=== PATIENT | male | born 1955 | race Two or more races ===

== ENCOUNTER 2017-03-26 07:32 | Inpatient (IN) | payer BC ==
[2017-03-04 14:23] VITALS: BMI 24.4
--- NOTE | 2017-03-25 09:13 | HP ---
[facility] - Chief Complaint Chief Complaint: left hip pain - Past Medical History Allergies/Adverse Reactions: Allergies Allergy/AdvReac Type Severity Reaction Status Date / Time No Known Allergies Allergy Verified 03/04/17 14:17 - Current Medications Current Medications: Home Medications Medication Instructions Recorded NK [No Known Home Medication] 12/22/15 [facility] Physical Exam - Physical Examination General Appearance: Well Nourished, Well Developed, Alert & Oriented x3 ENT: Clear Lung: Normal air movement Heart: Regular rate & rhythm Extremities: Other (left hip- + ttp ,decr rom, nvi xrays show severe hip djd) Neurological: Intact, Alert, Oriented [facility] Impression/Plan - Impression/Plan Impression: left hip djd Operative Procedure: left jae thr Date to be Performed: 03/26/17
[2017-03-26] MEDS ORDERED: TRANEXAMIC ACID 1000 MG/10 ML VIAL IVPUSH ONE (07:48)
[2017-03-26] MEDS ORDERED: oxyCODONE HCL 10 MG SUSTAINED ACTING TABLET PO ONE (07:48)
[2017-03-26] MEDS ORDERED: CELECOXIB 200 MG CAPSULE PO ONE (07:48)
[2017-03-26] MEDS ORDERED: CEFAZOLIN 2 GM in DEXTROSE 5%-WATER - 50 ML IVPB ONE (07:48)
[2017-03-26] MEDS ORDERED: GABAPENTIN 300 MG CAPSULE (FP) PO ONE (07:48)
[2017-03-26] MEDS ORDERED: ceFAZolin SODIUM 1 GM VIAL ONE ×2 (08:33→09:35)
[2017-03-26] MEDS ORDERED: VANCOMYCIN 1,000 MG VIAL (RESTRICTED TO ID ONLY) ONE (08:33)
[2017-03-26] MEDS ORDERED: MIDAZOLAM HCL 2 MG/2 ML SINGLE DOSE VIAL ONE ×2 (08:47→09:06)
[2017-03-26] MEDS ORDERED: ROPIVACAINE HCL 0.5% 30ML VIAL ONE (08:47)
[2017-03-26] MEDS ORDERED: DEXAMETHASONE SOD PHOSPHATE/PF 10 MG/ML SDV ONE (08:47)
[2017-03-26] MEDS ORDERED: EPINEPHrine/PF 1 MG/1 ML (1:1,000) AMPULE ONE (08:47)
[2017-03-26] MEDS ORDERED: BUPIVACAINE HCL/PF 0.5% (5MG/ML) 10 ML VIAL ONE (09:04)
[2017-03-26] MEDS ORDERED: ePHEDrine SULFATE 50 MG/1 ML AMPULE ONE (09:05)
[2017-03-26] MEDS ORDERED: TRANEXAMIC ACID 1000 MG/10 ML VIAL ONE ×2 (09:36→11:11)
[2017-03-26] MEDS ORDERED: PROPOFOL 20 ML ONE (10:46)
[2017-03-26] MEDS ORDERED: VANCOMYCIN 1,000 MG VIAL (RESTRICTED TO ID ONLY) IVPB ONE (11:07)
[2017-03-26] MEDS ORDERED: MAG HYDROX/AL HYDROX/SIMETH 30 ML UNIT-DOSE CUP PO PRN (11:37)
[2017-03-26] MEDS ORDERED: MAGNESIUM HYDROX 2400MG/30ML ORAL SUSPENSION 30 ML CUP PO PRN (11:37)
--- NOTE | 2017-03-26 11:40 | OP ---
Operative Note - Note: Operative Date: 03/26/17 (thuy) Pre-Operative Diagnosis: left hip djd Operation: left jae thr Post-Operative Diagnosis: Same as Pre-op Surgeon: Richard Harvey High Lift Operator: Jere Brar Anesthesiologist/DIE INSPECTOR: Ishaan Swain Anesthesia: Spinal, Local Specimens Removed: femoral head Estimated Blood Loss (mls): 200 Operative Report Dictated: Yes
[2017-03-26] MEDS ORDERED: LACTATED RINGERS SOLUTION 1,000 ML IV SCH (11:45)
[2017-03-26] MEDS ORDERED: oxyCODONE HCL 5 MG TABLET PO PRN (12:35)
[2017-03-26] MEDS ORDERED: ONDANSETRON 4 MG/2 ML VIAL IVPB PRN (12:54)
[2017-03-26] MEDS ORDERED: PROMETHAZINE HCL 25 MG/1 ML VIAL IVPUSH PRN (12:56)
[2017-03-26] MEDS: CEFAZOLIN 2 GM/D5W 50 ML IVPB SCH (17:56)
[2017-03-26] MEDS: oxyCODONE HCL 10 MG SUSTAINED ACTING TABLET PO SCH (21:25)
[2017-03-26] MEDS: GABAPENTIN 300 MG CAPSULE (FP) PO SCH (21:25)
[2017-03-26] MEDS: oxyCODONE HCL 5 MG TABLET PO PRN (21:26)
[2017-03-26] MEDS: SENNOSIDES/DOCUSATE COMBO (SENNA PLUS) TABLET (UD) PO SCH (21:26)
[2017-03-27] MEDS: CEFAZOLIN 2 GM/D5W 50 ML IVPB SCH (01:02)
[2017-03-27 06:19] VITALS: BP 116/71; PULSE 90; TEMP 98.5
[2017-03-27] MEDS: oxyCODONE HCL 5 MG TABLET PO PRN (06:58)
[2017-03-27 07:58] LABS: MCH 29.9 pg (25.7-33.7); MCHC 33.7 g/dl (32.0-35.9); MEAN CELL VOLUME 88.6 fl (80-96); MEAN PLT VOLUME 8.8 fl (7.5-11.1); PLATELET COUNT 311 K/MM3 (134-434); RDW 13.1 % (11.9-15.9); WHITE BLOOD COUNT 12.3 K/mm3 (4.0-10.8)
[2017-03-27] MEDS ORDERED: ASPIRIN 325 MG TABLET PO SCH (08:00)
--- NOTE | 2017-03-27 09:47 | PN ---
Progress Note (short form) - Note Progress Note: Ortho Pt seen and examined s/p left jae thr pod #1 Selected Entries 03/27/17 05:00 Temperature 98.5 F Pulse Rate 90 Respiratory 19 Rate Blood Pressure 116/71 Laboratory Tests 03/27/17 07:30 WBC 12.3 H Hgb 12.8 Hct 37.8 Plt Count 311 dressing c/d/i, calf soft, nt nvi a/p PT hip precautions dvt ppx pain control d/c home today f/u in 1 week
--- NOTE | 2017-03-27 09:48 | DS ---
Physical Examination Vital Signs: Vital Signs Temperature 98.5 F 03/27/17 05:00 Pulse Rate 90 03/27/17 05:00 Respiratory Rate 19 03/27/17 05:00 Blood Pressure 116/71 03/27/17 05:00 O2 Sat by Pulse Oximetry (%) 99 03/27/17 05:00 Labs: CBC, BMP 03/27/17 07:30 Discharge Summary Reason For Visit: OSTEOARTHRITIS Procedures: Principal: s/p left jae thr Hospital Course: admitted for elective left jae thr, uneventful post-op, stable for d/c Condition: Good - Instructions Diet, Activity, Other Instructions: Post-op Instructions-Total Hip Replacement Call the office for a follow-up appointment in 1 week - [phone] Aspirin 325mg daily for 6 weeks. Pain medication was sent into your pharmacy. Apply Graduated Compression Stockings (TEDs) to both lower extremities- remove daily for hygiene ONLY Apply Sequential Compression Device (SCDs) to both Lower extremities remove for PT and hygiene ONLY Apply cold packs to affected area for 15 minutes every 2 hours. Physical Therapist will come to your home for the first 5 days. You will be set up with outpatient PT at your first post-operative visit. Patient may ambulate as tolerated-encourage self care (at least every 2-3 hours while awake) with walker or cane Maintain Aquacel (waterproof) dressing to operative wound (will be removed by surgeon at first office visit) Shower with Aquacel dressing in place-if Aquacel integrity compromised, remove and apply dry sterile dressing and notify Orthopedist. DO NOT SHOWER unless Orthopedists approves without Aquacel dressing CONTACT THE OFFICE FOR ANY CHANGE IN YOUR CONDITION (for example-fever greater than 102 degrees,excessive bleeding from operative site, purulent drainage, severe swelling or pain) GO TO THE EMERGENCY ROOM IF THERE IS A MEDICAL EMERGENCY Hip Precautions: * Keep a rolled towel under affected heel while in bed or chair (to keep knee in extension) * Dependent upon approach: * Posterior - do not cross legs; do not sit on low chairs or toilets. * If you have any questions, please do not hesitate to call the office - [phone]. Referrals: Richard Harvey MD [Staff Physician] - Disposition: HOME - Home Medications Comprehensive Discharge Medication List: Ambulatory Orders Aspirin [ASA -] 325 mg PO DAILY@0800 tablet 03/26/17 Oxycodone HCl/Acetaminophen [Percocet 5-325 mg Tablet -] 1 - 2 tab PO Q6H #50 tab MDD 8 03/26/17
[2017-03-27] MEDS ORDERED: PANTOPRAZOLE 40 MG TABLET (FP) PO SCH (10:00)
[2017-03-27] MEDS ORDERED: MULTIVITAMINS (DAILY MVI) TABLET (FP) PO SCH (10:00)
[2017-03-27] MEDS: SENNOSIDES/DOCUSATE COMBO (SENNA PLUS) TABLET (UD) PO SCH (10:38)
[2017-03-27] MEDS: GABAPENTIN 300 MG CAPSULE (FP) PO SCH (10:38)
[2017-03-27] MEDS: oxyCODONE HCL 10 MG SUSTAINED ACTING TABLET PO SCH (10:38)
--- NOTE | 2017-03-27 11:43 | SPEC ---
DATE OF OPERATION: 03/26/2017 PREOPERATIVE DIAGNOSIS: Degenerative joint disease, left hip POSTOPERATIVE DIAGNOSIS: Degenerative joint disease, left hip PROCEDURE: Left total hip replacement with robotic arm navigation assistance (Makoplasty) SURGEON: Dr. Fritz Harvey HYDRO EXCAVATION OPERATOR: BLACK Hernandez ANESTHESIA: Spinal and regional. CLOSURE: A 56 Tritanium Press-Fit acetabulum with a No. 8 Accolade 2 Press-Fit femoral stem, and a 36-mm plus 5 ceramic head, No. 1 Vicryl for capsule and fascia, 0 and 2-0 subcutaneous, 3-0 Monocryl subcuticular for skin with skin glue. ESTIMATED BLOOD LOSS: Less than 100 mL. COMPLICATIONS: None. CONDITION: To recovery room in stable condition. DESCRIPTION OF OPERATIVE PROCEDURE: The patient was taken to the operating room. Spinal anesthesia as well as sciatic block was administered by the anesthesiologist. The IV Kefzol and TXA were administered prophylactically prior to the case. The patient was placed in the lateral decubitus position with all prominences well-padded. An EKG pad was secured to the inferior pole of the patella for limb length calculations intraoperatively. The left hip area was prepped and draped in the usual sterile fashion. A 12.0-15.0 cm curved longitudinal incision over the posterolateral aspect of the greater trochanter was made. Hemostasis was achieved with Bovie cautery. Sharp dissection was carried down to the level of the fascia. The fascia was opened the entire length of the incision, spreading the gluteus tosha fibers in the direction of their origin. A Charnley retractor was placed in this layer, and care was taken to be far away from the sciatic nerve. The short external rotators were detached off the insertion of the greater trochanter and peeled off the capsule. A posterior capsulectomy was then performed. A checkpoint was malleted into the greater trochanter. Three small stab incisions were done on the iliac crest. Through these stab incisions, threaded guide pins were drilled into the iliac crest. These pins were fastened to the Navigation array. The check point on the greater trochanter, and the EKG pad on the inferior pole of the patella were used to measure preoperative limb length and offset. The hip was then dislocated. The hip was osteotomized at the appropriate level as directed by the preoperative template. Anterior and posterior retractors were placed around the acetabulum. Circumferential labrum was excised. A checkpoint was malleted into the acetabulum superiorly. The acetabulum was then registered with the Navigation device with multiple sites within the acetabulum and around the rim of the acetabulum. I t was then confirmed popping the blue bubbles, confirming ideal position and confirmation of adequate registration with the Navigation device. Using a 48 reamer, which was decided preoperatively on the preoperative template, the robotic arm was brought into the field and was used to ream the acetabulum down to the appropriate depth with the appropriate orientation and inversion applied. After reaming, a good hemispherical bleeding surface was encountered in the acetabulum. A TERRI shell of the appropriate size was then malleted into place achieving excellent fit. Confirmation of the appropriate orientation and inversion was confirmed using the probe, and assuring that the acetabular cup was placed in the ideal position as templated preoperatively. A real liner was then clipped into place with a 10 degree lip in the posterior-superior quadrant. Anterior and posterior osteophytes were removed using osteotome. Next, our attention was directed to the femur. The proximal femur was opened with a box chisel, rat-tail, anchovy and serial reamers. This was done until the appropriate reamer achieved good fit and fill of the proximal femur. A trial reduction with the appropriate neck and head, as again measured from our preoperative template, was performed. Limb lengths were confirmed both visually and using the Navigation device, again measuring the inferior pole of the patella and the checkpoint of the greater trochanter. This confirmed ideal position of the femoral component, lengths and offset. The trial components were removed. The real component was malleted into place. The head was cold-welded to the Charnley and the hip was reduced. Again, the hip was found to have equal limb lengths as described previously. The hip was also taken through a range of motion and found to be stable in external rotation and extension, was stable in marked flexion, stable in adduction and internal rotation, and had a positive hang test and negative telescoping. The hip was irrigated with copious amounts of irrigation. Hemostasis was achieved. Vancomycin powder was sprinkled into the joint. A second dose of TXA was administered. The fascia was closed with No. 1 Vicryl interrupted suture, 0 and 2-0 for subcutaneous, and 3-0 Monocryl subcuticular for skin with skin glue. This was followed by an Aquacel dressing. The patient was flipped into the supine position. Bilateral SCDs and an abduction pillow were applied. X-rays showed good position of the components. The patient was awakened from anesthesia and transferred to the recovery room in stable condition. FRITZ HARVEY M.D. [id number]
--- NOTE | 2017-04-02 16:11 | PATH ---
Surgical Pathology Report Patient Name: HORACE GARCIAS Med. Rec. #: [id number] /Age/Gender: 1955 (Age: 61) / M Account: [id number] Location: [facility]G Taken: 03/26/2017 Received: 03/27/2017 Reported: 04/02/2017 Physicians: Richard Harvey M.D. Specimen(s) Received LEFT HIP FEMORAL HEAD Clinical History Left hip osteoarthritis Final Diagnosis FEMORAL HEAD, LEFT HIP, TOTAL HIP REPLACEMENT: DEGENERATIVE JOINT DISEASE. Electronically Signed Tala Crawford M.D. Gross Description Received in formalin, labeled "left hip femoral head," is a 5.0 x 4.5 x 4.5 cm. femoral head with a 1.3 cm in length attached portion of femoral neck. The margin of resection is smooth. No areas of eburnation are identified. The articular surface is soriano-yellow and focally nodular and granular. The underlying trabecular bone is yellow and hard. Rpg Programmer Analyst sections are submitted in one cassette, following decalcification. 03/27/2017 [facility]03/27/2017
== END 2017-03-27 17:05 | disposition home or self-care (01) | DRG 470 ==
LOC: FM/S 07:32
PROVIDERS: ADMIT Orthopaedic Surgery; ATTEND Orthopaedic Surgery
PROC: 8E0Y0CZ Robotic Assisted Procedure of Lower Extremity, Open Approach (ICD-10-PCS; 2017-03-26)
PROC: 0SRB0JZ Replacement of Left Hip Joint with Synthetic Substitute, Open Approach (ICD-10-PCS; principal; 2017-03-26 09:57)
DX: M16.12 Unilateral primary osteoarthritis, left hip (principal)
CPT/HCPCS: 36415; 73502-TC-LT; 85027; 88305-TC; 88311-TC; 94010; 94760; 97116-GP; 97162-PG

== ENCOUNTER 2020-07-17 13:05 | Emergency (ER) | payer BC ==
[2020-07-17 13:26] VITALS: BP 144/77; PULSE 59; TEMP 97.9; BMI 23.7
[2020-07-17] MEDS ORDERED: KETOROLAC TROMETHAMINE 30 MG/1 ML VIAL IVPUSH ONE (14:18)
[2020-07-17] MEDS ORDERED: SODIUM CHLORIDE 1,000 ML IV STA (14:18)
[2020-07-17 14:23] LABS: EPITHELIAL CELLS FEW /hpf
[2020-07-17] MEDS ORDERED: KETOROLAC TROMETHAMINE 30 MG/1 ML VIAL ONE (14:23)
--- NOTE | 2020-07-17 14:24 | PDOC ---
History of Present Illness - General Chief Complaint: Back Pain Stated Complaint: RIGHT SIDED BACK PAIN Time Seen by Provider: 07/17/20 13:11 - History of Present Illness Initial Comments: 07/17/20 14:22 65 M with no PMH presents to ED with R flank pain x 5 days. Pt states that he has had intermittent pain radiating from his R flank towards his groin. Denies any abdominal pain. Denies F/C. Denies dysuria. Pt states that he went to his PMD who did UA and found blood in his urine. He was started on cipro and flomax, but today he had an episode of severe pain that brought him to the ED. Pt states that just prior to arrival to ED, his pain subsided. He has no complaints currently. Pt notes that he has been taking tylenol at home with no relief. Past History - Medical History Allergies/Adverse Reactions: Allergies Allergy/AdvReac Type Severity Reaction Status Date / Time No Known Allergies Allergy Verified 07/17/20 13:16 Home Medications: Ambulatory Orders Ciprofloxacin HCl [Cipro] mg PO Q12H 07/17/20 Tamsulosin HCl [Flomax] 0.4 mg PO DAILY 07/17/20 Anemia: No Asthma: No Cancer: No Cardiac Disorders: No CVA: No COPD: No CHF: No Dementia: No Diabetes: No GI Disorders: No Disorders: No HTN: No Hypercholesterolemia: No Kidney Stones: Yes Liver Disease: No Seizures: No Thyroid Disease: No - Surgical History Abdominal Surgery: No Appendectomy: No Cardiac Surgery: No Cholecystectomy: No Lung Surgery: No Neurologic Surgery: No Orthopedic Surgery: No - Psycho-Social/Smoking History Smoking History: Former smoker Have you smoked in the past 12 months: No If you are a former smoker, when did you quit?: OVER 10 YEARS Information on smoking cessation initiated: No - Substance Abuse Hx (Audit-C & DAST Scrn) How often the patient has a drink containing alcohol: Never Score: In Men: 4 or > Positive; In Women: 3 or > Positive: 0 Screen Result (Pos requires Nsg. Audit-10AR): Negative In the last yr the pt used illegal drug/Rx for NonMed reason: No Score: Yes response is considered Positive: 0 Screen Result (Positive result requires Nsg. DAST-10): Negative Review of Systems - Review of Systems Comments:: 07/17/20 14:23 "GENERAL/CONSTITUTIONAL: No fever or chills. No weakness. HEAD, EYES, EARS, NOSE AND THROAT: No change in vision. No ear pain or discharge. No sore throat. CARDIOVASCULAR: No chest pain, no shortness of breath, no loss of consciousness RESPIRATORY: No cough, wheezing, or hemoptysis. GASTROINTESTINAL: No nausea, vomiting, diarrhea or constipation. GENITOURINARY: + R flank pain, No dysuria, frequency, or change in urination. MUSCULOSKELETAL: No joint or muscle swelling or pain. No neck or back pain. SKIN: No rash NEUROLOGIC: No vertigo, no change in strength/sensation. ENDOCRINE: No increased thirst. No abnormal weight change. HEMATOLOGIC/LYMPHATIC: No anemia, easy bleeding, or history of blood clots. ALLERGIC/IMMUNOLOGIC: No hives or skin allergy. *Physical Exam - Vital Signs Last Vital Signs Temp Pulse Resp BP Pulse Ox 97.9 F 59 L 18 144/77 100 07/17/20 13:05 07/17/20 13:05 07/17/20 13:05 07/17/20 13:05 07/17/20 13:05 - Physical Exam 07/17/20 14:24 "GENERAL: Awake, alert, and fully oriented, in no acute distress. HEAD: No signs of trauma EYES: PERRLA, EOMI, sclera anicteric, conjunctiva clear ENT: Auricles normal inspection, hearing grossly normal, nares patent, oropharynx clear without exudates. Moist mucosa NECK: Nontender, no stepoffs, Normal ROM, supple, no lymphadenopathy, JVD, or masses LUNGS: Breath sounds equal, clear to auscultation bilaterally. No wheezes, and no crackles HEART: Regular rate and rhythm, normal S1 and S2, no murmurs, rubs or gallops ABDOMEN: Soft, nontender, normoactive bowel sounds. No guarding, no rebound. No masses EXTREMITIES: Normal range of motion, no edema. No clubbing or cyanosis. No cords, erythema, or tenderness NEUROLOGICAL: Cranial nerves II through XII intact. 5/5 strength and sensation in all extremities, Normal speech, normal gait, normal cerebellar function SKIN: Warm, Dry, normal turgor, no rashes or lesions noted. ED Treatment Course - LABORATORY CBC & Chemistry Diagram: 07/17/20 15:22 07/17/20 14:18 - ADDITIONAL ORDERS Additional order review: Laboratory Results 07/17/20 14:02 Urine Color Yellow Urine Appearance Clear Urine pH 5.5 Urine Protein Negative Urine Glucose (UA) Negative Urine Ketones Trace Urine Blood 3+ H Urine Nitrite Negative Urine Bilirubin Negative Urine Urobilinogen 0.2 Ur Leukocyte Esterase Negative - RADIOLOGY Radiology Studies Ordered: Category Date Time Status ABDOMEN & PELVIS CT W/O CONTR [CT] Stat CT Scan 07/17/20 14:17 Ordered Medical Decision Making - Medical Decision Making 07/17/20 14:24 65 M with colicky R flank pain. Suspect renal colic. - Labs, UA - CTAP - IVF, toradol 07/17/20 16:00 CT with 4mm R ureteral stone Labs unremarkable Pt reassessed - pain well controlled Will DC with urology f/u Pt is well appearing, with normal vitals. Clinically stable for DC at this time. I discussed the physical exam findings, ancillary test results and final diagnoses with the patient. I answered all of the patient's questions. The patient was satisfied with the care received and felt comfortable with the discharge plan and treatment plan. The patient agrees to follow up with the primary care physician within 24-72 hours. Discharge - Discharge Information Problems reviewed: Yes Clinical Impression/Diagnosis: Kidney stone, Flank pain Disposition: HOME - Follow up/Referral Referrals: Lennox Santos MD [Primary Care Provider] - Per Sanchez MD [Staff Physician] - - Patient Discharge Instructions Patient Printed Discharge Instructions: DI for Kidney Stones Additional Instructions: Your CT scan shows a 4mm kidney stone. Drink plenty of fluid and take motrin as needed for pain. If you experience severe pain, vomiting, fevers, or any other concerning symptoms, return to the ER immediately. Otherwise, follow up with a urologist within 1 week for further management. Call the number provided if you do not currently have a urologist. - Post Discharge Activity
[2020-07-17 15:44] LABS: BASO % 0.5 % (0-2.0); EOS % 0.4 % (0-4.5); HEMATOCRIT 39.8 % (35.4-49); HEMOGLOBIN 13.4 GM/dl (11.7-16.9); LYMPH % 12.1 % (8-40); MCHC 33.8 g/dl (32.0-35.9); MEAN CELL VOLUME 88.7 fl (80-96); MONO % 12.4 % (3.8-10.2); NEUT % 74.6 % (42.8-82.8); PLATELET COUNT 330 K/MM3 (134-434); RBC 4.49 M/mm3 (4.00-5.60); RDW 13.4 % (11.9-15.9); WHITE BLOOD COUNT 9.4 K/mm3 (4.0-10.8)
[2020-07-17 15:50] LABS: ALBUMIN 3.6 g/dl (3.4-5.0); BILIRUBIN,TOTAL 0.8 mg/dl (0.2-1); CALCIUM 9.1 mg/dl (8.5-10); CREATININE 1.4 mg/dl (0.55-1.3); TOT PROT 6.6 g/dl (6.4-8.2)
== END 2020-07-17 16:20 | disposition home or self-care (01) ==
LOC: FER 13:05
PROC: 3E0333Z Introduction of Anti-inflammatory into Peripheral Vein, Percutaneous Approach (ICD-10-PCS; principal; 2020-07-17)
PROC: 3E0337Z Introduction of Electrolytic and Water Balance Substance into Peripheral Vein, Percutaneous Approach (ICD-10-PCS; 2020-07-17)
DX: N20.0 Calculus of kidney (principal); R10.9 Unspecified abdominal pain
CPT/HCPCS: 36415; 74176-TC; 80053; 81003; 81015; 85025; 99284-25

== ENCOUNTER 2021-11-23 20:14 | Emergency (ER) | payer BC, OTHER ==
[2021-11-23 20:20] VITALS: BP 133/66; PULSE 73; TEMP 98.4; BMI 23.7
== END 2021-11-23 21:07 | disposition home or self-care (01) ==
LOC: FER 20:14
DX: S62.617A Displaced fracture of proximal phalanx of left little finger, initial encounter for closed fracture (principal); W23.1XXA Caught, crushed, jammed, or pinched between stationary objects, initial encounter; Y93.67 Activity, basketball
CPT/HCPCS: 73140-TC-RT-FY; 99283-25

== ENCOUNTER 2022-10-24 08:24 | Day surgery (SDC) | payer BC ==
[2022-10-22 09:49] VITALS: BMI 23.7
[2022-10-24] MEDS ORDERED: BSS (NA/CA/MG/K) BALANCED SALT SOLUTION OPHTH SOLN 15 ML BOTTLE ONE (08:31)
[2022-10-24] MEDS ORDERED: CARBACHOL 0.01% INTRA-OCULAR 1.5 ML VIAL ONE (08:31)
[2022-10-24] MEDS ORDERED: TETRACAINE 0.5% OPHTH SOLN 2 ML BOTTLE ONE (08:31)
[2022-10-24] MEDS ORDERED: NEO/POLYMYX B SULF/DEXAMETH OPHTHALMIC 5ML BOTTLE ONE (08:31)
[2022-10-24] MEDS ORDERED: LIDOCAINE 1% P/F 10 MG/ML VIAL ONE (08:31)
[2022-10-24] MEDS: CYCLOPENTOLATE 2% OPHTH SOLN 2 ML BOTTLE ONE ×3 (08:55→09:05)
[2022-10-24] MEDS: TROPICAMIDE 1% OPHTH SOLN 15 ML BOTTLE ONE ×3 (08:55→09:05)
[2022-10-24] MEDS: CIPROFLOXACIN 0.3% EYE DROPS 5 ML BOTTLE ONE ×3 (08:55→09:05)
[2022-10-24] MEDS: PHENYLEPHRINE 2.5% OPHTH SOLN 15 ML BOTTLE ONE ×3 (08:55→09:05)
[2022-10-24] MEDS ORDERED: MIDAZOLAM HCL 2 MG/2 ML SINGLE DOSE VIAL ONE ×2 (09:46→10:09)
[2022-10-24 10:49] VITALS: TEMP 98
[2022-10-24 11:14] VITALS: BP 110/68; PULSE 74; RESP 19
== END 2022-10-24 11:07 | disposition home or self-care (01) ==
LOC: FASU 08:24
PROVIDERS: ATTEND Ophthalmology
PROC: 08RK3JZ Replacement of Left Lens with Synthetic Substitute, Percutaneous Approach (ICD-10-PCS; principal; 2022-10-24 10:13)
DX: H26.8 Other specified cataract (principal)
CPT/HCPCS: 66984; V2632

== ENCOUNTER 2023-06-26 08:26 | Day surgery (SDC) | payer BC ==
[2023-06-14 15:52] VITALS: BMI 23.7
[2023-06-26] MEDS: CIPROFLOXACIN 0.3% EYE DROPS 5 ML BOTTLE ONE ×3 (08:40→08:50)
[2023-06-26] MEDS: PHENYLEPHRINE 2.5% OPTHALMIC DROP 2ML BOTTLE ONE ×3 (08:40→08:50)
[2023-06-26] MEDS: TROPICAMIDE 1% OPHTH SOLN 15 ML BOTTLE ONE ×3 (08:40→08:50)
[2023-06-26] MEDS: CYCLOPENTOLATE 2% OPHTH SOLN 2 ML BOTTLE ONE ×3 (08:40→08:50)
[2023-06-26 08:48] VITALS: RESP 19
[2023-06-26] MEDS ORDERED: BSS (NA/CA/MG/K) BALANCED SALT SOLUTION OPHTH SOLN 15 ML BOTTLE ONE (09:46)
[2023-06-26] MEDS ORDERED: LIDOCAINE 1% P/F 10 MG/ML VIAL ONE (09:46)
[2023-06-26] MEDS ORDERED: TETRACAINE 0.5% OPHTH SOLN 2 ML BOTTLE ONE (09:46)
[2023-06-26] MEDS ORDERED: CARBACHOL 0.01% INTRA-OCULAR 1.5 ML VIAL ONE (09:46)
[2023-06-26] MEDS ORDERED: NEO/POLYMYX B SULF/DEXAMETH OPHTHALMIC 5ML BOTTLE ONE (09:46)
[2023-06-26] MEDS ORDERED: MIDAZOLAM HCL 2 MG/2 ML SINGLE DOSE VIAL ONE (09:53)
[2023-06-26 11:26] VITALS: TEMP 98.1
[2023-06-26 11:29] VITALS: BP 111/60; PULSE 58
== END 2023-06-26 11:30 | disposition home or self-care (01) ==
LOC: FASU 08:26
PROVIDERS: ATTEND Ophthalmology
PROC: 08RJ3JZ Replacement of Right Lens with Synthetic Substitute, Percutaneous Approach (ICD-10-PCS; principal; 2023-06-26 10:33)
DX: H26.8 Other specified cataract (principal)
CPT/HCPCS: 66984; V2632